=== PATIENT | female | born 1940 | race Caucasian/White ===

== ENCOUNTER 2025-08-16 05:50 | Day surgery (SDC) | payer MEDICARE, MEDICAID ==
[2025-08-15 13:49] LABS: MEAN PLATELET VOLUME 8.8 FL (7.4-10.4); RED CELL DISTRIBUTION WIDTH 13.6 % (11.5-14.5)
[2025-08-15 13:59] LABS: APTT 27 SECONDS (22-32); INR 1.1 INR
[2025-08-15 14:03] LABS: CREATININE 0.91 MG/DL (0.40-0.90); TOTAL CARBON DIOXIDE 29.6 MMOL/L (24-32); eGFR 59 ML/MIN
[~2025-08-16] VITALS: Ht 154.9 cm; Wt 68.7 kg
[2025-08-16] VITALS (11 sets, daily range): BP systolic 113–143; BP diastolic 56–72; PULSE 54–77; RESP 11–20; TEMP 98.1; O2SAT 92–98
[~2025-08-16 05:50] MED LIST: ALBU18HF2 INH; AMLO5TAB16 PO; CRAN500T7 PO; CYAN500T71 PO; EMPA10TA PO; GABA300C PO; LEVO137T2 PO; METO-395 PO; MV-M1TAB57 PO; ceFAZolin 2gm/dext,iso 50mL 50 ML IV ONE
--- NOTE | 2025-08-16 06:46 | ELECTROCARDIOGRAPH REPORT ---
[facility] Test Date: 2025-08-16 Test Time: 06:44:40 Pat Name: GAMAL SMITH Department: [facility] Patient ID: [id number] Room: Gender: F Veterinary Receptionist: IZZY : 1940 Requested By: EJ QUIGLEY Order Number: [id number] Reading MD: Dr. WELLINGTON Quigley Measurements Intervals [place] Rate: 69 P: 15 MN: 239 QRS: -53 QRSD: 99 T: 33 QT: 439 QTc: 471 Interpretive Statements Sinus rhythm Atrial premature complex Prolonged MN interval Left anterior fascicular block Consider anterior infarct Electronically Signed On 08-16-2025 17:50:[address] WELLINGTON Quigley Please click the below link to view image of tracing.
[2025-08-16] MEDS: normal saline 1000ml 1,000 ML IV SCH (06:53)
[2025-08-16] MEDS ORDERED: LIDOcaine 1% W/epiNEPHrine 1:100,000 20ml vial ONE (07:36)
[2025-08-16] MEDS ORDERED: midazolam 1 mg/ML 2ml injection ONE ×2 (07:36→09:00)
[2025-08-16] MEDS ORDERED: iohexol 350 MG/ML 50ML vial IV ONE (07:36)
[2025-08-16] MEDS ORDERED: fentaNYL/PF 50MCG/1 ML 2ML syringe ONE (07:36)
[2025-08-16] MEDS ORDERED: normal saline 1000ml 1,000 ML IV SCH (10:10)
[2025-08-16] MEDS ORDERED: CEPH-585 PO (10:16)
[2025-08-16] MEDS: vancomycin/NS 1 GM ADD-VANTAGE 250 ML X 1 DOSE IV ONE (11:31)
[2025-08-16] MEDS: HYDROcodone/acetaminophen 5mg/325mg tablet PO PRN (12:02)
--- NOTE | 2025-08-16 13:21 | RADIOLOGY REPORT ---
DI CHEST,TWO VIEWS CLINICAL HISTORY: POST OP PACEMAKER COMPARISON: None TECHNIQUE: Frontal and lateral view of the chest was obtained FINDINGS: Lines and Tubes: Left pacemaker . Lungs: No focal consolidation. Pleura: No effusion. No pneumothorax. Cardiomediastinal contours: Unremarkable Bones: Right total shoulder artrhoplasty. IMPRESSION: No acute cardiopulmonary disease.
--- NOTE | 2025-08-16 23:40 | CARDIOLOGY REPORT ---
DATE OF SERVICE: 08/16/2025 DICTATING PHYSICIAN: WELLINGTON Quigley MD GENDER: Female. AGE: 85 HEIGHT: 155 cm. WEIGHT: 69 kg. BODY SURFACE AREA: 1.68 m2. PRIMARY PHYSICIAN: [facility]. INDICATION: The patient is an 85-year-old postmenopausal female with a history of diabetes, hypertension, hyperlipidemia with COPD, sick sinus syndrome, and CAD. The patient has been having episodes of dizziness, palpitation, and shortness of breath. Event monitor on 07/27/2025 revealed pauses up to 6.6 seconds with associated symptoms. The patient also had episodes of sinus bradycardia. These findings were discussed with the patient. The patient prefers to proceed with permanent pacemaker implantation. Risks, benefits, and alternative options discussed. Informed consent obtained. The patient used to get her cardiac care at [facility] in [place], [place]. She also had a mitral clip placement for mitral regurgitation. The patient also has a history of paroxysmal atrial fibrillation and also has a history of CAD, with sick sinus syndrome with prolonged pauses with presyncope . PROCEDURES DONE: 1. Fluoroscopy. 2. AV sequential pacemaker implantation. 3. Conscious sedation time was 75 minutes. SURGEON: WELLINGTON Quigley MD, FACC. FREIGHT WEIGHER SURGEON: None. ANESTHESIOLOGIST: None. ANESTHESIA: Conscious sedation with anesthesia. COMPLICATIONS: None. ESTIMATED BLOOD LOSS: Less than 5 mL. DESCRIPTION OF PROCEDURE: Left infraclavicular area was prepped and draped in the usual fashion. The procedure was carried out under local anesthesia and conscious sedation. Two separate accesses were obtained in the left subclavian using percutaneous Seldinger technique with micropuncture needle. Micropuncture wires were replaced with J-wires. A horizontal incision was made in the left infraclavicular area. Using blunt dissection and electrocautery, prepectoral subcutaneous pacemaker pocket was fashioned. External ends of J-wires retrieved into the pacemaker pocket. Two 7-Cymraes sheaths were advanced over them. Through one of them, RV lead was advanced to the RV apex, screwed into the RV apex, appropriate pacing and sensing thresholds were obtained. Then subsequently, it got disrupted with movement of the tip and then it was repositioned with good pacing and sensing thresholds. Through the second 7-Cymraes sheath, the atrial lead was advanced to the right atrium. A J-wire was formed and screwed into the right atrial appendage. Appropriate pacing and sensing thresholds were obtained. Sheath was removed by peel-away technique. The lead was anchored to the subcutaneous tissue with Ethibond. The pocket was irrigated with copious antibiotic solution. Leads were connected to appropriate sockets of the pulse generator. Set screws were tightened. TUG test was performed. Pacemaker was placed in the pacemaker pocket. Pocket was closed with #0 Vicryl followed by interrupted #0 Vicryl. A third layer of interrupted 2-0 Vicryl was applied. Skin approximated with camryn. Pressure dressing was applied. The patient tolerated the procedure well with no complications. TECHNICAL INFORMATION: DEVICE: Medtronic MRI compatible pacemaker, model number [id number], serial number [id number], Medtronic, 08/16/2025, left pectoral location. RIGHT ATRIAL LEAD: Model number [id number], 52 cm long, serial number [id number], Medtronic, 08/16/2025, right atrial appendage, P-wave amplitude 1.6 mV, 494 ohms impedance, pacing threshold of 0.5 to 0.4 milliseconds. RIGHT VENTRICULAR LEAD: Model number [id number], 58 cm long, serial number [id number], Medtronic, 08/16/2025, RV apex, R-wave amplitude 2.3 ohms impedance, pacing threshold 0.75 to 0.4 millisecond. IMPRESSION: An 85-year-old female with prolonged pauses up to 6.6 secondary to syncopal episode. Underwent successful atrioventricular sequential pacemaker implantation with no complications. WELLINGTON Quigley MD TID: [id number] RECEIPT: [id number] CANDE/JEREMIAH cc: [facility]
== END 2025-08-16 14:20 | disposition home or self-care (01) ==
LOC: SSTAY O 05:50
PROVIDERS: ATTEND Internal Medicine Cardiovascular Disease
DX: I49.5 Sick sinus syndrome (principal); I25.10 Atherosclerotic heart disease of native coronary artery without angina pectoris; I34.0 Nonrheumatic mitral (valve) insufficiency; I48.0 Paroxysmal atrial fibrillation; I10 Essential (primary) hypertension; R53.83 Other fatigue; J44.9 Chronic obstructive pulmonary disease, unspecified; E78.5 Hyperlipidemia, unspecified; E11.9 Type 2 diabetes mellitus without complications; I49.1 Atrial premature depolarization; E03.9 Hypothyroidism, unspecified; K21.9 Gastro-esophageal reflux disease without esophagitis; Z79.82 Long term (current) use of aspirin; Z95.0 Presence of cardiac pacemaker; Z79.899 Other long term (current) drug therapy
CPT/HCPCS: 33208; 36415; 71046; 80048; 82948; 85025; 85610; 85730; 93005; 99152; 99153; A4565; A6402; C1785; C1898; J0690; J1200; J2250; J3010; J3373; J3490; J7030; Z7610; A6449; Q9967